=== PATIENT | male | born 1975 | race Asian ===

== ENCOUNTER 2023-11-10 14:13 | Emergency (ER) | payer MEDICAID ==
[~2023-11-10] VITALS: Ht 170.2 cm; Wt 49.9 kg
[2023-11-10 14:25] VITALS: BP_SYST 132; PULSE 175; RESP 16; TEMP 97.9; O2SAT 100
[2023-11-10] MEDS: ADENOSINE 6MG/2ML VIAL IVP ONE (14:37)
[2023-11-10 14:39] LABS: BASOPHILS % (AUTO) 0.6 % (0.0-2.0); EOSINOPHILS # (AUTO) 0.1 K/uL (0.0-0.4); EOSINOPHILS % (AUTO) 1.4 % (0.0-4.0); HEMATOCRIT 43.2 % (36-54); HEMOGLOBIN 14.8 g/dL (14.0-18.0); LYMPHOCYTES % (AUTO) 34.9 % (20.5-51.5); MEAN CORPUSCULAR HEMOGLOBIN 32 pg (27-31); MEAN CORPUSCULAR HGB CONC 34 % (32-36); MEAN CORPUSCULAR VOLUME 92 fL (79.0-98.0); MONOCYTES # (AUTO) 0.7 K/uL (0.0-1.0); MONOCYTES % (AUTO) 12.3 % (1.7-9.3); NEUTROPHILS # (AUTO) 2.9 K/uL (1.8-7.7); NEUTROPHILS % (AUTO) 50.8 % (40.0-70.0); PLATELET COUNT (AUTO) 234 K/uL (130-430); RED BLOOD CELL COUNT(AUTO) 4.71 MIL/uL (4.2-6.2); RED CELL DISTRIBUTION WIDTH 13.6 % (9.0-15.0); WHITE BLOOD COUNT (AUTO) 5.8 K/uL (4.8-10.8)
[2023-11-10 14:51] LABS: ANION GAP 11 (5-15); CALCIUM 9.1 mg/dL (8.4-11.0); CARBON DIOXIDE 25 mmol/L (23-29); CHLORIDE 101 mmol/L (98-107); CREATININE 0.99 mg/dL (0.55-1.30); GFR AFRICAN AMERICAN 103 mL/min (>90); GLUCOSE 117 mg/dL (74-106); POTASSIUM 3.3 mmol/L (3.5-5.1); SODIUM SERUM 137 mmol/L (136-145); UREA NITROGEN, BLOOD 14 mg/dL (8-21)
[2023-11-10 14:53] LABS: GFR NON AFRICAN-AMERICAN 85 mL/min (>90)
[2023-11-10 14:59] LABS: CREATINE KINASE, TOTAL 88 U/L (39-308)
[2023-11-10 15:09] LABS: INR 0.9 (0.80-1.20); PROTHROMBIN TIME 9.8 SECS (9.5-12.5)
[2023-11-10] MEDS: ATENOLOL 50 MG TABLET (TENORMIN) PO ONE (15:10)
[2023-11-10] MEDS ORDERED: ATEN-41 PO (15:28)
[2023-11-10 16:00] VITALS: BP_SYST 121; PULSE 94; RESP 17; TEMP 98.1; O2SAT 100
== END 2023-11-10 15:56 | disposition home or self-care (01) ==
LOC: SED 14:13
DX: I47.10 Supraventricular tachycardia, unspecified (principal)
CPT/HCPCS: 99285; 96374; 71045; 80048; 82550; 83880; 85025; 85610; 85730; 84484; 36415; 93005; J0153; 96372